=== PATIENT | female | born 1985 | race Caucasian/White ===

== ENCOUNTER → 2017-12-13 | Day surgery (SDC) | payer SELFPAY, OTHER ==
[~2017-12-13] MED LIST: ACETAMINOPHEN 1000 MG/100 ML 100 ML IV ONE; ACETAMINOPHEN 1000 MG/100 ML IV ONE; ADDERALL 30 MG30 MG PO; CEFAZOLIN SOD 1 GM VIAL ONE; CELEXA PO; CITALOPRAM HBR40 MG PO; DEXAMETHASONE SOD PHOS INJ 4 MG/ML VIAL ONE; FENTANYL CITRATE/PF 100MCG/2 ML INJ ONE; KEFLEX500 MG PO; KETOROLAC TROMETHAMINE 30 MG/ML VIAL ONE; LIDOCAINE HCL 2% LOCAL INJ 5 ML SDV VIAL INJ ONE; LOVENOX60 MG/0.6 SC; METFORMIN HCL500 MG PO; MIDAZOLAM HCL 2 MG/2 ML VIAL ONE; MUPIROCIN 2% OINT 22 GM TUBE ONE; NORCO 7.5-3251 EACH PO; NUVARING VAGIN1 EACH VG; ONDANSETRON HCL INJ 2 MG/ML VIAL ONE; PROPOFOL IV EMULSION 10 MG/ML 20 ML VIAL ONE; SEVOFLURANE INHAL SOLN 250 ML PEN BTL ONE
--- OUTSIDE RECORDS SUMMARY | 2017-12-13 06:34 | XMS REPORT ---
Author Author [facility] Address Unknown Phone Unavailable Care Team Providers Care [employer] Services Manager Name Role Phone Mina Cordoba Unavailable Unavailable Problems This patient has no known problems. Allergies, Adverse Reactions, Alerts This patient has no known allergies or adverse reactions. Medications This patient has no known medications. Results Test Description Test Time Test Comments Text Results Atomic Results Result Comments Urine test at point of care 2017-10-02 15:25:00 Urine Test (test code=UPG) NEG NEG Urine specific gravity measurement (test rpgd=3935-1) 1.025 1.005-1.030 Tested by: amg BLOOD: NEG GLUCOSE: NEG KETONES: NEG LEUKOCYTES: NEG NITRITE: NEG PH: 6.5 PROTEIN: NEG amg NEG amg NEG NEG NEG NEG NEG 6.5 NEG Y 1.025Urine dipstick testing at [id number] 15:25:00* Test Item Value Reference Range Comments Urine glucose detection (test fqwb=3160-4) Negative NEG Urine Ketones (test code=UKET) NEGATIVE NEG Urine blood detection (test bsqh=38573-6) Negative NEG Urine pH (test tyga=8530-5) 6.5 5.0-7.0 Urinalysis with microscopy (test ivip=45604-7) NEGATIVE NEG Urine nitrate measurement (test tdjy=28199-5) NEGATIVE NEG Urine Leukocyte Esterase (test code=UESTR) NEGATIVE NEG Tested by: amg BLOOD: NEG GLUCOSE: NEG KETONES: NEG LEUKOCYTES: NEG NITRITE: NEG PH: 6.5 PROTEIN: NEG amg NEG amg NEG NEG NEG NEG NEG 6.5 NEG Y 1.025
--- NOTE | 2017-12-13 14:30 | Operative Report ---
DATE OF PROCEDURE: December 13, 2017 PREOPERATIVE DIAGNOSIS: Medial thigh lipodystrophy with excess skin. POSTOPERATIVE DIAGNOSIS: Medial thigh lipodystrophy with excess skin. PROCEDURES: Bilateral medial thigh lift. ANESTHESIA: General. HISTORY: The patient is a 32-year-old female who has lost in excess of 90 pounds due to bariatric surgery. She now wishes to have correction of the contour deformity of the bilateral medial thighs. Risks, benefits and alternatives of treatment were discussed with the patient. She is prepared to undergo the procedures outlined and has signed the [place] [employer] consent form for the procedures. DETAILS OF PROCEDURE: Patient was marked preoperatively in the holding area in the upright position. She was brought to the operating theater, and after the induction of adequate general anesthesia, she was prepped and draped in a supine position. A time out was performed. A Rojas catheter had been placed. The procedure was begun by reinforcing the incision lines on the medial thighs from just superior to the knee up to the groin and then across the inguinal crease. The incisions were made through the skin and subcutaneous tissues. Bleeding was controlled using the electrocautery. Using the electrocautery, the plane of dissection was the deep subcutaneous plane, taking care to protect and preserve major vascular structures. Once the skin flaps on the anterior surface and the posterior surface of the thigh had been undermined sufficiently to allow adequate redraping, I used a technique where the excess skin was placed on stretch using Allis clamps and then serially sectioned sharply to accurately resect the appropriate amount of skin with the correct tension. This was done for the entire length of the procedure. At this point, both wounds were made hemostatic using the electrocautery. The wounds were irrigated with bacteriostatic saline and checked for hemostasis, which was made absolute. Quarter-inch Mikael drains were then placed in the depths of the wounds. The wounds were closed with 3-0 Monocryl in an interrupted buried fashion followed by 4-0 Monocryl running subcuticular stitch. At this point, ABD dressings were placed over the Ava drains to such up any fluid draining from them, and then sterile bulky dressings were applied to the thighs and then the thighs were wrapped with a loosely wrapped Rafael wrap. The patient tolerated the procedure well. The estimated blood loss of the procedure was approximately 100 mL. She was returned to recovery in satisfactory condition and discharged with a postoperative instruction sheet as well as a followup appointment. Job#: [id number]
== END | disposition home or self-care (01) ==
LOC: OR 06:31
PROVIDERS: ATTEND Plastic Surgery
DX: E88.1 Lipodystrophy, not elsewhere classified (principal); E11.9 Type 2 diabetes mellitus without complications; Z98.84 Bariatric surgery status; K21.9 Gastro-esophageal reflux disease without esophagitis; E28.2 Polycystic ovarian syndrome; F90.9 Attention-deficit hyperactivity disorder, unspecified type; F41.9 Anxiety disorder, unspecified
CPT/HCPCS: 15832; 36415; 81025; 82948; J0690; J1100; J1885; J2001; J2250; J2405